=== PATIENT | female | born 1995 | race Caucasian/White ===

== ENCOUNTER 2016-09-21 00:03 | Emergency (ER) | payer OTHER, MEDICAID ==
[2016-09-21 00:10] VITALS: RESP 16; TEMP 97.9; O2SAT 96
--- NOTE | 2016-09-21 00:49 | EDPHY ---
H & P Stated Complaint: dizziness Time Seen by Provider: 09/21/16 00:31 HPI/ROS: Chief Complaint: Dizzy, head injury 2 weeks ago HPI: 20-year-old female struck her occiput 2 weeks ago when she jumped on a cart with wheals that rolled forward she fell back and struck her head at a gym. She had no loss of conscious. Since that time she has been having intermittent headaches and intermittent dizziness. She has a history of concussions in the past. Some nausea but no vomiting. Had a headache on Sunday which went away with Excedrin. Also developed a headache at 11 o' clock yesterday morning which again went away with ibuprofen and Excedrin. No vision or hearing changes. Has had some mild room spinning intermittently. Patient states that she feels much worse when she stands up site down. No nausea or vomiting. Has not followed up with primary care physician. Currently has no headache and is not currently feeling dizzy at this time. ROS: 10 point Review of Systems is negative except as noted in the HPI. PMH: Asthma, uterine fibroids, IBS, concussions Medications: Qvar, albuterol, baclofen Allergies: No known drug allergies Social History: No smoking, occasional alcohol, no recreational drug use Family History: non-contributory Physical Exam: Gen: Awake, Alert, No Distress HEENT: Nose: no rhinorrhea Eyes: PERRLA, EOMI Mouth: Moist mucosa Neck: Supple, no JVD Chest: nontender, lungs clear to auscultation Heart: S1, S2 normal, no murmur Abd: Soft, non-tender, no guarding Back: no CVA tenderness, no midline tenderness Ext: no edema, non-tender Skin: no rash Neuro: CN II-XII intact, Sensation grossly intact, Strength 5/5 in bilateral upper and lower extremities, normal finger-nose, normal [id number], negative Romberg - Personal History LMP (Females 10-55): 1-7 Days Ago Current Tetanus/Diphtheria Vaccine: Yes Current Tetanus Diphtheria and Acellular Pertussis (TDAP): Yes - Medical/Surgical History Hx Asthma: Yes Hx Chronic Respiratory Disease: No Hx Diabetes: No Hx Cardiac Disease: No Hx Renal Disease: No Hx Cirrhosis: No Hx Alcoholism: No Hx HIV/AIDS: No Hx Splenectomy or Spleen Trauma: No Other PMH: asthma, uterine fibroids, IBS - Social History Smoking Status: Never smoked Constitutional: Initial Vital Signs Temperature (C) 36.6 C 09/21/16 00:08 Heart Rate 95 09/21/16 00:08 Respiratory Rate 16 09/21/16 00:08 Blood Pressure 123/83 H 09/21/16 00:08 O2 Sat (%) 96 09/21/16 00:08 O2 Delivery Mode Room Air Allergies/Adverse Reactions: No Known Allergies Allergy (Unverified 09/21/16 00:06) Home Medications: Medication Instructions Recorded Albuterol 09/21/16 Baclofen 09/21/16 Qvar 09/21/16 Medical Decision Making ED Course/Re-evaluation: 20-year-old female with post concussive type symptoms. There is no red flags for expanding hematoma at this point. Given her age I think the risk of exposing her to the radiation CT scan is not warrant any benefits at this time. She is currently symptom free. Will discharge with referral for primary care follow-up. She might need follow up with neurologist if she continues to have symptoms. I have also instructed her to avoid any activities which might result in another head injury Departure - Departure Disposition: Home, Routine, Self-Care Clinical Impression: Post concussive syndrome Condition: Good Instructions: Concussion (ED) Additional Instructions: Return to the emergency depart for increasing headache not relieved with medicines, uncontrolled nausea or vomiting, numbness, weakness, or any other concerns. Follow up with primary care physician in 2-3 days for further evaluation. Referrals: NONE *PRIMARY CARE P,. [Primary Care Provider] - As per Instructions Waldemar Chase MD [Medical Doctor] - As per Instructions
[2016-09-21 00:59] VITALS: BP 114/61; PULSE 68
== END 2016-09-21 01:00 | disposition home or self-care (01) ==
DX: S09.90XA Unspecified injury of head, initial encounter (principal); F07.81 Postconcussional syndrome; J45.909 Unspecified asthma, uncomplicated; W18.09XA Striking against other object with subsequent fall, initial encounter; Y99.8 Other external cause status; Y93.39 Activity, other involving climbing, rappelling and jumping off